=== PATIENT | male | born 1990 | race Caucasian/White ===

== ENCOUNTER 2023-06-03 23:20 | Emergency (ER) | payer SELFPAY ==
[~2023-06-03] VITALS: Ht 190.5 cm; Wt 90.7 kg
[2023-06-03 23:22] VITALS: TEMP 98.1
[2023-06-03] MEDS ORDERED: ONDANSETRON HCL/PF 4 MG/2 ML VIAL ONE (23:45)
[2023-06-03] MEDS ORDERED: MORPHINE SULFATE INJ 4 MG/ML DISP.SYRIN ONE (23:51)
[2023-06-03] MEDS: IV NS 0.9% 1,000 ML BAG IV ONE (23:55)
[2023-06-03] MEDS: ONDANSETRON HCL/PF 4 MG/2 ML VIAL IV ONE (23:56)
[2023-06-03] MEDS: MORPHINE SULFATE INJ 2 MG/ML DISP.SYRIN IV ONE (23:56)
[2023-06-04] MEDS ORDERED: HYDROMORPHONE 1 MG/1 ML DISP.SYRIN ONE (00:34)
[2023-06-04] MEDS: HYDROMORPHONE 1 MG/1 ML DISP.SYRIN IV ONE (00:37)
[2023-06-04 00:40] LABS: BASOPHILS % (AUTO) 0.3 % (0.0-2.0); EOSINOPHILS % (AUTO) 0.4 % (0.0-6.0); HEMATOCRIT 41 % (39-51); HEMOGLOBIN 14.1 g/dL (13.5-17.5); LYMPHOCYTES # (AUTO) 1.6 K/uL (0.8-4.8); LYMPHOCYTES % (AUTO) 14.7 % (20.0-44.0); MEAN CORPUSCULAR HEMOGLOBIN 30 PG (26.0-33.0); MEAN CORPUSCULAR HGB CONC 35 g/dl (31.0-36.0); MEAN CORPUSCULAR VOLUME 86 fL (80-96); MONOCYTES # (AUTO) 1.1 K/uL (0.1-1.30); MONOCYTES % (AUTO) 10.1 % (2.0-12.0); NEUTROPHILS # (AUTO) 8.3 K/uL (1.8-8.9); NEUTROPHILS % (AUTO) 74.5 % (43.0-81.0); PLATELET COUNT (AUTO) 258 K/uL (150-450); RED BLOOD CELL COUNT(AUTO) 4.73 MIL/uL (4.5-6.0); RED CELL DISTRIBUTION WIDTH 12.5 % (11.5-15.0); WHITE BLOOD COUNT (AUTO) 11.1 K/uL (4.3-11.0)
[2023-06-04 00:48] LABS: INR 0.96 (0.91-1.10); PARTIAL THROMBOPLASTIN TIME 27.6 SEC (24.3-34.3); PROTHROMBIN TIME 10.2 SECS (9.2-11.1)
[2023-06-04 00:54] LABS: CALCIUM, SERUM 9.1 mg/dL (8.5-10.1); CREATININE 1.2 mg/dL (0.6-1.3); POTASSIUM 3.4 mmol/L (3.5-5.1)
[2023-06-04] MEDS ORDERED: IOHEXOL-300 100 ML VIAL IV ONE (01:04)
[2023-06-04] MEDS ORDERED: IV NS 0.9% 250 ML IV ONE (01:04)
[2023-06-04] MEDS ORDERED: CT SWABBABLE VALVE TRANS SET 1 EA INFUS.SET MC ONE (01:04)
[2023-06-04 03:00] VITALS: BP 114/71; O2SAT 98
[2023-06-04] MEDS ORDERED: MORPHINE SULFATE INJ 4 MG/ML DISP.SYRIN ONE (03:36)
[2023-06-04] MEDS: MORPHINE SULFATE INJ 2 MG/ML DISP.SYRIN IV ONE (03:40)
== END 2023-06-04 03:58 | disposition short-term general hospital (02) ==
LOC: ER 23:22
DX: S27.321A Contusion of lung, unilateral, initial encounter (principal); S30.1XXA Contusion of abdominal wall, initial encounter; Z98.890 Other specified postprocedural states; V89.2XXA Person injured in unspecified motor-vehicle accident, traffic, initial encounter; Y93.89 Activity, other specified; Y92.89 Other specified places as the place of occurrence of the external cause; Y99.8 Other external cause status
CPT/HCPCS: 99291; 71250; 96374; 96361; 96375 ×2; 74176; 36415; 71260; 74177; 85025; 80048; 85730; 86850; 96376; J2270 ×2; J2405; J7050; Q9967; J1170